=== PATIENT | male | born 1950 | race African-American/Black ===

== ENCOUNTER → 2016-07-19 | Outpatient (CLI) | payer OTHER ==
[2015-06-13 11:43] VITALS: BP 123/83
--- NOTE | 2016-07-19 11:03 | RAD ---
HISTORY: Right hip pain Study: Right hip two views, AP pelvis Comparison: None Findings: The pelvic bones and SI joints are intact. The right hip joint is intact. Mild degenerative joint sp mary beth narrowing is present. No joint erosions are noted. No fracture, lytic, or blastic lesion is iden tified. IMPRESSION: Mild degenerative joint space narrowing right hip Reported By:
== END ==
LOC: RAD 10:38
PROVIDERS: ATTEND Specialist
DX: M25.551 Pain in right hip (principal)
CPT/HCPCS: 73501

== ENCOUNTER 2020-03-01 04:40 | Inpatient (IN) ==
[2020-03-01 04:58] VITALS: BMI 27.8
--- NOTE | 2020-03-01 05:01 | DR.SOBA ---
HPI Time Seen Time Seen by Provider: 03/01/20 04:55 HPI Comment HPI Comment: Worsening sob this am after having cough, congestion for the past week; treated empirically with Medrol dose xochitl and zjanellek and covid came back positive on Friday; taking meds as prescribed but tonight noted sats fell to low 80s; denies fever, chills, abd pain, n/v/d, smith, dizziness, cp and rash; he does not smoke but does have sarcoidosis, dm and htn. PMH PMH Past Medical History: Coronary Artery Disease and Hyperthyroidism Past Surgical History: Yes Social History Do you use any recreational Drugs:: No ROS Review of Systems Constitutional: No Symptoms Reported Eyes: No Symptoms Reported ENTM: No Symptoms Reported Cardiovascular: No Symptoms Reported Gastrointestinal/Abdominal: No Symptoms Reported Genitourinary: Other (weak bladder) Neurological: No Symptoms Reported Musculoskeletal: No Symptoms Reported Integumentary: No Symptoms Reported Hematologic/Lymphatic: No Symptoms Reported Endocrine: No Symptoms Reported Psychiatric: No Symptoms Reported PE Vital Signs Vitals: Temperature 97.5 F Pulse Rate 77 Respiratory Rate 24 Blood Pressure 143/79 O2 Sat by Pulse Oximetry 87 General Limitations: No Limitations General Appearance: Alert and In No Apparent Distress Head Head Exam: Normal Inspection Eyes Eye exam: Normal Appearance ENT ENT Exam: Normal Exam Neck Neck Exam: Normal Inspection Chest Chest Inspection: Normal Inspection Respiratory Respiratory Exam: Bilateral: Decreased Breath Sounds, Left: Crackles (scattered) and Lower: Crackles (scattered) Cardiovascular Cardiovascular Exam: Regular Rate and Normal Rhythm Abdominal Exam Abdominal Exam: Normal Inspection, Normal Bowel Sounds and Soft Extremities Extremities Exam: Normal Inspection Back Back Exam: Normal Inspection Neurologic Neurological Exam: Alert and Oriented X3 Psychiatric Psychiatric Exam: Normal Affect and Normal Mood Skin Skin Exam: Warm, Dry, Intact and Normal Color COURSE Reevaluation 1st: Unchanged (resting comfortably; diaphoretic; asks for water) Consultation Call Returned: 06:40 (Dr David accepts admission) ROR Labs Reviewed Laboratory Results Reviewed?: Yes Result Diagrams: 03/01/20 05:07 03/01/20 05:07 Laboratory: WBC 11.7 X10^3/uL (3.6-10.0) H 03/01/20 05:07 RBC 4.54 X10^6/uL (4.7-6.0) L 03/01/20 05:07 Hgb 13.7 g/dL (13.5-18.0) 03/01/20 05:07 Hct 41.7 % (42.0-54.0) L 03/01/20 05:07 MCV 91.7 fL (80.0-100.0) 03/01/20 05:07 MCH 30.1 pg (27.0-34.0) 03/01/20 05:07 MCHC 32.8 g/dL (33.0-35.0) L 03/01/20 05:07 RDW 13.2 % (11.6-16.5) 03/01/20 05:07 Plt Count 202 X10^3/uL (150.0-450.0) 03/01/20 05:07 MPV 7.3 fL (7.4-11.0) L 03/01/20 05:07 Neut % (Auto) 83.7 % (42.0-75.0) H 03/01/20 05:07 Lymph % (Auto) 5.4 % (21.0-51.0) L 03/01/20 05:07 [place] % (Auto) 9.6 % (0.0-13.0) 03/01/20 05:07 Eos % (Auto) 1.1 % (0.9-2.9) 03/01/20 05:07 Baso % (Auto) 0.2 % (0.2-1.0) 03/01/20 05:07 Neut # (Auto) 9.8 x10^3/uL (2.2-4.8) H 03/01/20 05:07 Lymph # (Auto) 0.6 X10^3/uL (1.3-2.9) L 03/01/20 05:07 [place] # (Auto) 1.1 x10^3/uL (0.3-0.8) H 03/01/20 05:07 Eos # (Auto) 0.1 x10^3/uL (0.0-0.2) 03/01/20 05:07 Baso # (Auto) 0.0 X10^3/uL (0.0-0.1) 03/01/20 05:07 Absolute Nucleated RBC 0.0 /100WBC 03/01/20 05:07 Sample Site Rbra 03/01/20 05:36 ABG pH 7.470 (7.35-7.45) H 03/01/20 05:36 ABG pCO2 28.0 mmHg (35.0-45.0) L 03/01/20 05:36 ABG pO2 60.0 mmHg (80.0-100.0) L 03/01/20 05:36 ABG HCO3 20.4 mmol/L (22-26) L 03/01/20 05:36 ABG O2 Saturation 92.0 % (90-100) 03/01/20 05:36 ABG Base Excess -2.2 mmol/L (-2.0-2.0) L 03/01/20 05:36 Vasu Test Na 03/01/20 05:36 A-a Gradient 162.0 mmHg 03/01/20 05:36 FiO2 36.0 03/01/20 05:36 Blood Gas Comments Pt tiki well eb 03/01/20 05:36 Sodium 137 mmol/L (136-145) 03/01/20 05:07 Corrected Sodium 138 mmol/L (136-145) 03/01/20 05:07 Potassium 4.0 mmol/L (3.5-5.1) 03/01/20 05:07 Chloride 104 mmol/L (98-107) 03/01/20 05:07 Carbon Dioxide 23.5 mmol/L (21-32) 03/01/20 05:07 BUN 32 mg/dL (7-18) H 03/01/20 05:07 Creatinine 1.42 mg/dL (0.70-1.30) H 03/01/20 05:07 Est GFR (MDRD) Af Amer > 60 (>60) 03/01/20 05:07 Est GFR (MDRD) Non-Af 52 (>60) L 03/01/20 05:07 Glucose 148 mg/dL (65-99) H 03/01/20 05:07 Lactic Acid 2.0 mmol/L (0.4-2.0) 03/01/20 05:07 Calcium 8.9 mg/dL (8.5-10.1) 03/01/20 05:07 Corrected Calcium 9.7 mg/dL (8.5-10.1) 03/01/20 05:07 Total Bilirubin 1.10 mg/dL (0.2-1.0) H 03/01/20 05:07 AST 49 Units/L (15-37) H 03/01/20 05:07 ALT 56 Units/L (12-78) 03/01/20 05:07 Alkaline Phosphatase 71 Units/L (46-116) 03/01/20 05:07 Lactate Dehydrogenase 348 Units/L (85-227) H 03/01/20 05:07 C-Reactive Protein 95.90 mg/L (0-3.0) H 03/01/20 05:07 Total Protein 8.1 g/dL (6.4-8.2) 03/01/20 05:07 Albumin 3.0 g/dL (3.4-5.0) L 03/01/20 05:07 Globulin 5.1 g/dL (2.5-4.5) H 03/01/20 05:07 Albumin/Globulin Ratio 0.6 Ratio (1.1-2.1) L 03/01/20 05:07 XRAY XRAY Interpreted by: Radiologist X-ray Results: CXR: IMPRESSION: 1. Bilateral moderate pneumonia. 2. Heart size upper limits of normal. Opioid Opioid Risk Tool Age (Roger box if 16-45): No History of Preadolescent Sexual Abuse: No Total: 0 Total Score Risk Category: Low Risk Copyright: Parveen NUR predicting aberrant behaviors Diagnosis Discharge Problem: Hypoxia, COVID-19, Acute renal insufficiency Bilateral pneumonia Qualifiers: Pneumonia type: due to unspecified organism Lung location: upper lobe of lung Qualified Code(s): J18.9 - Pneumonia, unspecified organism Instructions Instructions: Community-Acquired Pneumonia, Adult, [id number] Forms: Patient Portal Social Distancing
[2020-03-01 05:14] LABS: BASOPHILS % (AUTO) 0.2 % (0.2-1.0); EOSINOPHILS # (AUTO) 0.1 x10^3/uL (0.0-0.2); EOSINOPHILS % (AUTO) 1.1 % (0.9-2.9); HEMATOCRIT 41.7 % (42.0-54.0); HEMOGLOBIN 13.7 g/dL (13.5-18.0); LYMPHOCYTES # (AUTO) 0.6 X10^3/uL (1.3-2.9); LYMPHOCYTES % (AUTO) 5.4 % (21.0-51.0); MEAN CORPUSCULAR HEMOGLOBIN 30.1 pg (27.0-34.0); MEAN CORPUSCULAR HGB CONC 32.8 g/dL (33.0-35.0); MEAN CORPUSCULAR VOLUME 91.7 fL (80.0-100.0); MEAN PLATELET VOLUME 7.3 fL (7.4-11.0); MONOCYTES # (AUTO) 1.1 x10^3/uL (0.3-0.8); MONOCYTES % (AUTO) 9.6 % (0.0-13.0); NEUTROPHILS # (AUTO) 9.8 x10^3/uL (2.2-4.8); NEUTROPHILS % (AUTO) 83.7 % (42.0-75.0); PLATELET COUNT 202 X10^3/uL (150.0-450.0); RED BLOOD COUNT 4.54 X10^6/uL (4.7-6.0); RED CELL DISTRIBUTION WIDTH 13.2 % (11.6-16.5); WHITE BLOOD COUNT 11.7 X10^3/uL (3.6-10.0)
--- NOTE | 2020-03-01 05:14 | RAD ---
PROCEDURE: Chest X-ray 1 View .HISTORY: Short of breath.TECHNIQUE: AP view .COMPARISON: None .TECHNICAL QUALITY: Satisfactory .FINDINGS:Heart size upper limits of normal with pacemaker on the left. No mediastinal widening.Normal central vascularity .Patchy consolidation both mid lower lung consistent with pneumonia. No pleural fluid or pneumothorax.IMPRESSION:1. Bilateral moderate pneumonia.2. Heart size upper limits of normal.Electronically signed by: Frandy Yates (Mar 01, 2020 05:13:05)
[2020-03-01 05:27] LABS: ALANINE AMINOTRANSFERASE 56 Units/L (12-78); ALKALINE PHOSPHATASE 71 Units/L (46-116); ASPARTATE AMINO TRANSFERASE 49 Units/L (15-37); BLOOD UREA NITROGEN 32 mg/dL (7-18); CALCIUM 8.9 mg/dL (8.5-10.1); CARBON DIOXIDE 23.5 mmol/L (21-32); CHLORIDE 104 mmol/L (98-107); COR CA(FOR HYPOALB) 9.7 mg/dL (8.5-10.1); COR NA(FOR HYPERGLY) 138 mmol/L (136-145); CREATININE 1.42 mg/dL (0.70-1.30); LACTATE DEHYDROGENASE 348 Units/L (85-227); SODIUM 137 mmol/L (136-145); TOTAL PROTEIN 8.1 g/dL (6.4-8.2); eGFR NON BLACK RACES 52 (>60)
[2020-03-01 05:38] LABS: ABG BASE EXCESS -2.2 mmol/L (-2.0-2.0); ABG HCO3 20.4 mmol/L (22-26)
[2020-03-01] MEDS ORDERED: ZOSYN VIAL 2.25 GRAMS 2.25 G in NS 100 ML IV + SPIKE MINIBAG* 100 ML IV STA (06:39)
[2020-03-01] MEDS ORDERED: REMDESIVIR 200 MG in NS 250 ML IV 250 ML IV ONE (06:44)
[2020-03-01] MEDS ORDERED: DECADRON TAB PO SCH (09:00)
[2020-03-01] MEDS: PULMICORT NEB TX 0.5 MG NEB SCH ×2 (10:02→21:10)
[2020-03-01] MEDS: DUONEB 0.5 MG/3 MG (3 mL) NEB SCH ×4 (10:02→21:10)
--- NOTE | 2020-03-01 10:24 | DR.H&P ---
H&P History & Physical for Day of: H&P Date: 03/01/20 Chief Complaint Chief Complaint: worsening SOB, weakness Allergies Allergies Allergy/AdvReac Type Severity Reaction Status Date / Time No Known Drug Allergies Allergy Verified 01/22/19 23:53 History of Present Illness History of Present Illness: Mr. Cheney is a 69y/o male with a PMH of Sarcoidosis, DM, HTN and AICD presented with worsening dyspnea. He states he tested positive for COVID 02/22/20. He sees Dr. Petit and was given z-pack and medrol dose pack. He states he was doing fine until yesterday he started having increased shortness of breath. Patient does not use O2 at home. He was on initially placed on nasal canula but sats remained in the 80s so he was placed on venti mask at 50%. He does not seem to be in distress, no labored breathing noted. Labs: - WBC 11.7 BUN/Cr: 32/1.42 AB.47/28/60/20 on 3L NC CXR: bilateral moderate pneumonia. Patient was started on IV antibotics, decadron and remdesivir. Will continue Zosyn, switch to solumedrol and continue Remdesivir. Wean O2 as tolerated to keep sats > 92%. Monitor respiratory status closely. Aggressive pulmonary toilet with bronchodilators. Add SSI for hyperglycemia. Lovenox 30 mg BID for DVT ppx. Continue vitamin support. Reconcile home medications. Time spent for clinical assessment, physical exam, reviewing labs/imaging, decision making and documentation greater than 45 mins. Past Medical History Past Medical History: Coronary Artery Disease and Hyperthyroidism Additional Medical History: AICD Past Surgical History Additional Surgical History: AICD placement Family History Family Medical History: Diabetes Mellitus, Cancer, [place], Coronary Artery Disease and Hypertension Social History Does patient currently use any type of tobacco product: No Have you used tobacco products in the last 12 months: No Type of Tobacco Use: None Does any household member use tobacco: No Alcohol Use: None Prescription drug monitoring program results: PDMP reviewed and no concerns iden tified Medications Home Medications: No Known Drug Allergies Allergy (Verified 01/22/19 23:53) Labs Result Diagrams: 03/01/20 05:07 03/01/20 05:07 Labs: Laboratory WBC 11.7 X10^3/uL (3.6-10.0) H 03/01/20 05:07 RBC 4.54 X10^6/uL (4.7-6.0) L 03/01/20 05:07 Hgb 13.7 g/dL (13.5-18.0) 03/01/20 05:07 Hct 41.7 % (42.0-54.0) L 03/01/20 05:07 MCV 91.7 fL (80.0-100.0) 03/01/20 05:07 MCH 30.1 pg (27.0-34.0) 03/01/20 05:07 MCHC 32.8 g/dL (33.0-35.0) L 03/01/20 05:07 RDW 13.2 % (11.6-16.5) 03/01/20 05:07 Plt Count 202 X10^3/uL (150.0-450.0) 03/01/20 05:07 MPV 7.3 fL (7.4-11.0) L 03/01/20 05:07 Neut % (Auto) 83.7 % (42.0-75.0) H 03/01/20 05:07 Lymph % (Auto) 5.4 % (21.0-51.0) L 03/01/20 05:07 [place] % (Auto) 9.6 % (0.0-13.0) 03/01/20 05:07 Eos % (Auto) 1.1 % (0.9-2.9) 03/01/20 05:07 Baso % (Auto) 0.2 % (0.2-1.0) 03/01/20 05:07 Neut # (Auto) 9.8 x10^3/uL (2.2-4.8) H 03/01/20 05:07 Lymph # (Auto) 0.6 X10^3/uL (1.3-2.9) L 03/01/20 05:07 [place] # (Auto) 1.1 x10^3/uL (0.3-0.8) H 03/01/20 05:07 Eos # (Auto) 0.1 x10^3/uL (0.0-0.2) 03/01/20 05:07 Baso # (Auto) 0.0 X10^3/uL (0.0-0.1) 03/01/20 05:07 Absolute Nucleated RBC 0.0 /100WBC 03/01/20 05:07 Sample Site Rb 03/01/20 05:36 ABG pH 7.470 (7.35-7.45) H 03/01/20 05:36 ABG pCO2 28.0 mmHg (35.0-45.0) L 03/01/20 05:36 ABG pO2 60.0 mmHg (80.0-100.0) L 03/01/20 05:36 ABG HCO3 20.4 mmol/L (22-26) L 03/01/20 05:36 ABG O2 Saturation 92.0 % (90-100) 03/01/20 05:36 ABG Base Excess -2.2 mmol/L (-2.0-2.0) L 03/01/20 05:36 Vasu Test Na 03/01/20 05:36 A-a Gradient 162.0 mmHg 03/01/20 05:36 FiO2 36.0 03/01/20 05:36 Blood Gas Comments Pt tiki well eb 03/01/20 05:36 Sodium 137 mmol/L (136-145) 03/01/20 05:07 Corrected Sodium 138 mmol/L (136-145) 03/01/20 05:07 Potassium 4.0 mmol/L (3.5-5.1) 03/01/20 05:07 Chloride 104 mmol/L (98-107) 03/01/20 05:07 Carbon Dioxide 23.5 mmol/L (21-32) 03/01/20 05:07 BUN 32 mg/dL (7-18) H 03/01/20 05:07 Creatinine 1.42 mg/dL (0.70-1.30) H 03/01/20 05:07 Est GFR (MDRD) Af Amer > 60 (>60) 03/01/20 05:07 Est GFR (MDRD) Non-Af 52 (>60) L 03/01/20 05:07 Glucose 148 mg/dL (65-99) H 03/01/20 05:07 Lactic Acid 2.0 mmol/L (0.4-2.0) 03/01/20 05:07 Calcium 8.9 mg/dL (8.5-10.1) 03/01/20 05:07 Corrected Calcium 9.7 mg/dL (8.5-10.1) 03/01/20 05:07 Total Bilirubin 1.10 mg/dL (0.2-1.0) H 03/01/20 05:07 AST 49 Units/L (15-37) H 03/01/20 05:07 ALT 56 Units/L (12-78) 03/01/20 05:07 Alkaline Phosphatase 71 Units/L (46-116) 03/01/20 05:07 Lactate Dehydrogenase 348 Units/L (85-227) H 03/01/20 05:07 C-Reactive Protein 95.90 mg/L (0-3.0) H 03/01/20 05:07 Total Protein 8.1 g/dL (6.4-8.2) 03/01/20 05:07 Albumin 3.0 g/dL (3.4-5.0) L 03/01/20 05:07 Globulin 5.1 g/dL (2.5-4.5) H 03/01/20 05:07 Albumin/Globulin Ratio 0.6 Ratio (1.1-2.1) L 03/01/20 05:07 Review of Systems Constitutional: Weakness and Malaise Eyes: No Symptoms Reported ENT: No Symptoms Reported Respiratory: Cough, Shortness of Breath and SOB with Excertion Cardiovascular: No Symptoms Reported Gastrointestinal: No Symptoms Reported Genitourinary: No Symptoms Reported Musculoskeletal: No Symptoms Reported Skin: No Symptoms Reported Neurological: No Symptoms Reported Physical Exam Vital Signs: Temperature 97.5 F Pulse Rate 77 Respiratory Rate 24 Blood Pressure 143/79 O2 Sat by Pulse Oximetry 87 Oriented: Normal Eyes: Normal Ear: Normal Nose: Normal Throat: Normal Respiratory: Diminished Throughout Cardiovascular: Normal Auscultation: Bowel Sounds: Normal Palpation: Normal Tenderness: Normal Skin: Decreased Turgur Musculoskeletal: Normal Mood Description: Calm Affect: Normal Speech Pattern: Clear and Appropriate Assessment/Plan (1) COVID-19: Status: Acute (2) Pneumonia due to COVID-19 virus: Status: Acute (3) Acute respiratory failure with hypoxia: Status: Acute (4) Acute renal insufficiency: Status: Acute (5) AICD (automatic cardioverter/defibrillator) present: Status: Acute (6) Diabetes: Qualifiers: Diabetes mellitus complication status: without complication Diabetes mellitus termite renewal inspector insulin use: unspecified care home insulin use status Diabetes mellitus type: type 2 Qualified Code(s): E11.9 - Type 2 diabetes mellitus without complications Status: Acute (7) Sarcoidosis: Status: Acute Review H&P Reviewed: Yes Patient was examined?: Yes
[2020-03-01] MEDS ORDERED: SOLU-Medrol 40 MG VIAL ONE (10:44)
[2020-03-01] MEDS ORDERED: VITAMIN C ONE (10:44)
[2020-03-01] MEDS ORDERED: PEPCID TAB 40 MG ONE (10:44)
[2020-03-01] MEDS ORDERED: REMDESIVIR IV ONE (10:45)
[2020-03-01] MEDS ORDERED: NS 1000 ML 1,000 ML ONE (10:45)
[2020-03-01] MEDS ORDERED: NS 250 ML IV 250 ML IV ONE (10:45)
[2020-03-01] MEDS ORDERED: LOVENOX INJ 30 MG SYR SC ONE (10:45)
[2020-03-01] MEDS: NS 1000 ML 1,000 ML IV SCH (11:11)
[2020-03-01] MEDS: PEPCID TAB 40 MG PO SCH ×2 (11:12→21:20)
[2020-03-01] MEDS: LOVENOX INJ 30 MG SYR SC SCH ×2 (11:12→21:19)
[2020-03-01] MEDS: SOLU-Medrol 40 MG VIAL IVP SCH ×3 (11:12→22:05)
[2020-03-01] MEDS: ZINC SULFATE PO SCH ×2 (11:13→21:20)
[2020-03-01] MEDS: VITAMIN C PO SCH (11:13)
[2020-03-01] MEDS: ZOSYN VIAL 2.25 GRAMS 2.25 G in NS 100 ML IV + SPIKE MINIBAG* 100 ML IV SCH ×2 (11:18→23:41)
[2020-03-01] MEDS ORDERED: ZESTRIL TAB 10 MG ONE (11:19)
[2020-03-01] MEDS: ZESTRIL TAB 10 MG PO SCH (11:29)
[2020-03-01] MEDS ORDERED: HumuLIN R ONE (16:39)
[2020-03-01] MEDS: HumuLIN R SC PRN ×2 (17:28→22:04)
[2020-03-01] MEDS ORDERED: ZOSYN VIAL 3.375 GRAMS IV ONE (20:27)
[2020-03-01] MEDS ORDERED: NS 100 ML IV + SPIKE MINIBAG* 100 ML IV ONE (20:28)
[2020-03-01] MEDS: ZOSYN VIAL 2.25 GRAMS 3.375 G in NS 100 ML IV + SPIKE MINIBAG* 100 ML IV SCH (22:03)
[2020-03-02 04:24] LABS: ABG BASE EXCESS -3.7 mmol/L (-2.0-2.0); ABG HCO3 20.6 mmol/L (22-26)
[2020-03-02] MEDS ORDERED: NS 100 ML IV + SPIKE MINIBAG* 100 ML IV ONE (04:49)
[2020-03-02] MEDS ORDERED: ZOSYN VIAL 3.375 GRAMS IV ONE (04:50)
[2020-03-02] MEDS: ZOSYN VIAL 2.25 GRAMS 3.375 G in NS 100 ML IV + SPIKE MINIBAG* 100 ML IV SCH (05:04)
--- NOTE | 2020-03-02 05:32 | RAD ---
PROCEDURE: Chest X-ray 1 View .HISTORY: COVID, HYPOXIA .TECHNIQUE: AP view .COMPARISON: 03/01/2020.TECHNICAL QUALITY: Satisfactory .FINDINGS:Heart size upper limits of normal with pacemaker on the left.No mediastinal widening.Normal central vascularity.Patchy consolidation both lung unchanged from previous study with no pleural fluid or pneumothorax.IMPRESSION:Unchanged bilateral pneumonia.Electronically signed by: Frandy Yates (Mar 02, 2020 05:30:20)
[2020-03-02] MEDS: SOLU-Medrol 40 MG VIAL IVP SCH ×3 (05:42→22:26)
[2020-03-02] MEDS: HumuLIN R SC PRN ×4 (06:01→22:27)
[2020-03-02 08:13] LABS: BASOPHILS % (AUTO) 0.1 % (0.2-1.0); HEMATOCRIT 40.9 % (42.0-54.0); HEMOGLOBIN 13.6 g/dL (13.5-18.0); LYMPHOCYTES # (AUTO) 0.6 X10^3/uL (1.3-2.9); LYMPHOCYTES % (AUTO) 6.1 % (21.0-51.0); MEAN CORPUSCULAR HEMOGLOBIN 30.8 pg (27.0-34.0); MEAN CORPUSCULAR HGB CONC 33.2 g/dL (33.0-35.0); MEAN CORPUSCULAR VOLUME 92.9 fL (80.0-100.0); MEAN PLATELET VOLUME 7.9 fL (7.4-11.0); MONOCYTES # (AUTO) 0.4 x10^3/uL (0.3-0.8); MONOCYTES % (AUTO) 3.6 % (0.0-13.0); NEUTROPHILS # (AUTO) 9.1 x10^3/uL (2.2-4.8); NEUTROPHILS % (AUTO) 90.2 % (42.0-75.0); PLATELET COUNT 210 X10^3/uL (150.0-450.0); RED BLOOD COUNT 4.41 X10^6/uL (4.7-6.0); RED CELL DISTRIBUTION WIDTH 13.9 % (11.6-16.5); WHITE BLOOD COUNT 10.1 X10^3/uL (3.6-10.0)
[2020-03-02 08:28] LABS: ALANINE AMINOTRANSFERASE 89 Units/L (12-78); ALBUMIN 2.8 g/dL (3.4-5.0); ALKALINE PHOSPHATASE 72 Units/L (46-116); ASPARTATE AMINO TRANSFERASE 59 Units/L (15-37); BLOOD UREA NITROGEN 30 mg/dL (7-18); CALCIUM 9.2 mg/dL (8.5-10.1); CARBON DIOXIDE 17.5 mmol/L (21-32); CHLORIDE 107 mmol/L (98-107); COR CA(FOR HYPOALB) 10.2 mg/dL (8.5-10.1); COR NA(FOR HYPERGLY) 143 mmol/L (136-145); CREATININE 1.27 mg/dL (0.70-1.30); SODIUM 140 mmol/L (136-145); eGFR NON BLACK RACES 59 (>60)
[2020-03-02] MEDS ORDERED: ALPHAGAN 0.2% OPHTH SOLN OP SCH (09:00)
[2020-03-02 09:12] LABS: BAND NEUTROPHILS % 4 % (0-10); PLATELET MORPHOLOGY COMMENT NORMAL (NORMAL)
[2020-03-02] MEDS: PULMICORT NEB TX 0.5 MG NEB SCH ×2 (09:34→21:55)
[2020-03-02] MEDS: DUONEB 0.5 MG/3 MG (3 mL) NEB SCH ×4 (09:34→21:55)
[2020-03-02] MEDS: ZESTRIL TAB 10 MG PO SCH (10:00)
[2020-03-02] MEDS: ZINC SULFATE PO SCH ×2 (10:00→22:25)
[2020-03-02] MEDS: LUMIGAN OPHTH AFFEYE SCH ×4 (10:00→22:25)
[2020-03-02] MEDS: BETAPACE AF PO SCH ×2 (10:00→22:24)
[2020-03-02] MEDS: PriLOSEC PO SCH (10:00)
[2020-03-02] MEDS: LUMIGAN OPHTH EACHEYE SCH (10:00)
[2020-03-02] MEDS: LIPITOR TAB 10 MG PO SCH ×2 (10:00→22:24)
[2020-03-02] MEDS: ELIQUIS PO SCH ×2 (10:00→22:24)
[2020-03-02] MEDS: VITAMIN C PO SCH (10:00)
[2020-03-02] MEDS: REMDESIVIR 100 MG in NS 250 ML IV 250 ML IV SCH (10:00)
[2020-03-02] MEDS: NS 1000 ML 1,000 ML IV SCH (14:42)
[2020-03-02] MEDS: TRUSOPT PLUS (OPHTH) OP SCH ×2 (15:00→22:26)
[2020-03-02] MEDS: NEURONTIN CAP 300 MG PO SCH ×3 (15:00→22:25)
[2020-03-02] MEDS: ZOSYN VIAL 3.375 GRAMS 3.375 G in NS 100 ML IV + SPIKE MINIBAG* 100 ML IV SCH ×2 (16:30→22:26)
[2020-03-03] MEDS: LR 1000 ML IV 1,000 ML IV SCH (04:00)
[2020-03-03] MEDS: SOLU-Medrol 40 MG VIAL IVP SCH ×3 (05:28→21:20)
[2020-03-03] MEDS: ZOSYN VIAL 3.375 GRAMS 3.375 G in NS 100 ML IV + SPIKE MINIBAG* 100 ML IV SCH ×3 (05:28→21:20)
[2020-03-03] MEDS: NEURONTIN CAP 300 MG PO SCH ×4 (05:28→21:20)
[2020-03-03] MEDS: TRUSOPT PLUS (OPHTH) OP SCH ×3 (05:28→21:21)
[2020-03-03] MEDS: HumuLIN R SC PRN ×4 (05:53→22:34)
[2020-03-03] MEDS: NS 1000 ML 1,000 ML IV SCH (06:08)
[2020-03-03 06:55] LABS: BASOPHILS % (AUTO) 0.1 % (0.2-1.0); HEMATOCRIT 40.5 % (42.0-54.0); HEMOGLOBIN 13.4 g/dL (13.5-18.0); LYMPHOCYTES # (AUTO) 0.6 X10^3/uL (1.3-2.9); LYMPHOCYTES % (AUTO) 2.6 % (21.0-51.0); MEAN CORPUSCULAR HEMOGLOBIN 30.6 pg (27.0-34.0); MEAN CORPUSCULAR VOLUME 92.6 fL (80.0-100.0); MEAN PLATELET VOLUME 7.8 fL (7.4-11.0); MONOCYTES # (AUTO) 0.7 x10^3/uL (0.3-0.8); MONOCYTES % (AUTO) 3.4 % (0.0-13.0); NEUTROPHILS # (AUTO) 20.5 x10^3/uL (2.2-4.8); NEUTROPHILS % (AUTO) 93.9 % (42.0-75.0); PLATELET COUNT 252 X10^3/uL (150.0-450.0); RED BLOOD COUNT 4.38 X10^6/uL (4.7-6.0); RED CELL DISTRIBUTION WIDTH 13.6 % (11.6-16.5); WHITE BLOOD COUNT 21.8 X10^3/uL (3.6-10.0)
[2020-03-03 06:58] LABS: ALANINE AMINOTRANSFERASE 76 Units/L (12-78); ALBUMIN 2.7 g/dL (3.4-5.0); ALKALINE PHOSPHATASE 71 Units/L (46-116); ASPARTATE AMINO TRANSFERASE 41 Units/L (15-37); BLOOD UREA NITROGEN 27 mg/dL (7-18); CALCIUM 9.2 mg/dL (8.5-10.1); CARBON DIOXIDE 22.6 mmol/L (21-32); CHLORIDE 109 mmol/L (98-107); COR CA(FOR HYPOALB) 10.2 mg/dL (8.5-10.1); COR NA(FOR HYPERGLY) 146 mmol/L (136-145); CREATININE 1.32 mg/dL (0.70-1.30); SODIUM 142 mmol/L (136-145); TOTAL PROTEIN 7.7 g/dL (6.4-8.2); eGFR NON BLACK RACES 57 (>60)
[2020-03-03 07:38] LABS: BAND NEUTROPHILS % 2 % (0-10); PLATELET MORPHOLOGY COMMENT NORMAL (NORMAL)
[2020-03-03] MEDS: DUONEB 0.5 MG/3 MG (3 mL) NEB SCH ×4 (09:40→21:50)
[2020-03-03] MEDS: PULMICORT NEB TX 0.5 MG NEB SCH ×2 (09:40→21:50)
--- NOTE | 2020-03-03 09:47 | PCM.PROG ---
Progress Note Progress Note for Day of Date of Exam: 03/02/20 Subjective Subjective: Patient seen at bedside, no overnight events. He is being treated for COVID-19 pneumonia and acute resp failure. He remains on NRB at 100%. He states he feels a lot better, his breathing has improved. He has been coughing, denies fever or chills. Patient appears comfortable, no labored breathing noted. Denies GI Sx. Labs: AM labs pending Plan: follow labs, CXR and ABG. Wean O2 as tolerated to keep sats> 92%. Continue solumedrol, IV abx and Remdesivir. Continue bronchodilators and immune support with vitamins. Resume home medications. Stop lovenox and resume home dose Eliquis. PT/OT as tolerated. Monitor resp status closely. Time spent for clinical assessment, physical examination, reviewing labs/imaging, decision making and documentation greater than 45 mins. Past Medical Family Social History Past Med/Fam/Surg Hx: No changes since H&P Allergies: Allergies No Known Drug Allergies Allergy (Verified 01/22/19 23:53) Review of Systems ROS: No change since H&P Vital Signs and I&O's Vital Signs: Temperature 97.8 F Pulse Rate [Apical] 74 Pulse Rate 68 Respiratory Rate 20 Blood Pressure [Right Arm] 125/73 Blood Pressure 143/79 O2 Sat by Pulse Oximetry 98 Intake and Output: Intake & Output 02/29/20 03/01/20 03/02/20 03/03/20 23:59 23:59 23:59 23:59 Intake Total 1311 / 1311 2003 / 2003 252 / 252 Output Total 1200 / 1200 1650 / 1650 450 / 450 Balance 111 / 111 354 / 354 -198 / -198 Physical Exam Oriented: Normal Eyes: Normal Ear: Normal Nose: Normal Throat: Normal Respiratory: Generalized and Diminished Cardiovascular: Normal Auscultation: Bowel Sounds: Normal Tenderness: Normal Skin: Decreased Turgur Musculoskeletal: Normal Mood Description: Calm Affect: Normal Speech Pattern: Clear and Appropriate Laboratory and Diagnostics Result Diagrams: 03/03/20 05:21 03/03/20 05:21 Labs: Laboratory WBC 21.8 X10^3/uL (3.6-10.0) H D 03/03/20 05:21 RBC 4.38 X10^6/uL (4.7-6.0) L 03/03/20 05:21 Hgb 13.4 g/dL (13.5-18.0) L 03/03/20 05:21 Hct 40.5 % (42.0-54.0) L 03/03/20 05:21 MCV 92.6 fL (80.0-100.0) 03/03/20 05:21 MCH 30.6 pg (27.0-34.0) 03/03/20 05:21 MCHC 33.0 g/dL (33.0-35.0) 03/03/20 05:21 RDW 13.6 % (11.6-16.5) 03/03/20 05:21 Plt Count 252 X10^3/uL (150.0-450.0) 03/03/20 05:21 Plt Count Comment Adequate (ADEQUATE) 03/03/20 05:21 MPV 7.8 fL (7.4-11.0) 03/03/20 05:21 Neut % (Auto) 93.9 % (42.0-75.0) H 03/03/20 05:21 Lymph % (Auto) 2.6 % (21.0-51.0) L 03/03/20 05:21 [place] % (Auto) 3.4 % (0.0-13.0) 03/03/20 05:21 Eos % (Auto) 0.0 % (0.9-2.9) L 03/03/20 05:21 Baso % (Auto) 0.1 % (0.2-1.0) L 03/03/20 05:21 Neut # (Auto) 20.5 x10^3/uL (2.2-4.8) H 03/03/20 05:21 Lymph # (Auto) 0.6 X10^3/uL (1.3-2.9) L 03/03/20 05:21 [place] # (Auto) 0.7 x10^3/uL (0.3-0.8) 03/03/20 05:21 Eos # (Auto) 0.0 x10^3/uL (0.0-0.2) 03/03/20 05:21 Baso # (Auto) 0.0 X10^3/uL (0.0-0.1) 03/03/20 05:21 Absolute Nucleated RBC 0.1 /100WBC 03/03/20 05:21 Total Counted 100 03/03/20 05:21 Neutrophils % (Manual) 90 % (39-76) H 03/03/20 05:21 Band Neutrophils % 2 % (0-10) 03/03/20 05:21 Lymphocytes % (Manual) 4 % (13-43) L 03/03/20 05:21 Monocytes % (Manual) 4 % (4-9) 03/03/20 05:21 Plt Morphology Comment Normal (NORMAL) 03/03/20 05:21 RBC Morphology Normal (NORMAL) 03/03/20 05:21 D-Dimer 1.57 ug/ml (0.0-0.57) H* 03/03/20 05:21 Sample Site Rb 03/02/20 04:19 ABG pH 7.390 (7.35-7.45) 03/02/20 04:19 ABG pCO2 34.0 mmHg (35.0-45.0) L 03/02/20 04:19 ABG pO2 92.0 mmHg (80.0-100.0) 03/02/20 04:19 ABG HCO3 20.6 mmol/L (22-26) L 03/02/20 04:19 ABG O2 Saturation 97.0 % (90-100) 03/02/20 04:19 ABG Base Excess -3.7 mmol/L (-2.0-2.0) L 03/02/20 04:19 Vasu Test N/a 03/02/20 04:19 A-a Gradient 579.0 mmHg 03/02/20 04:19 FiO2 100.0 03/02/20 04:19 Blood Gas Comments Tejinder well ae 03/02/20 04:19 Sodium 142 mmol/L (136-145) 03/03/20 05:21 Corrected Sodium 146 mmol/L (136-145) H 03/03/20 05:21 Potassium 5.1 mmol/L (3.5-5.1) 03/03/20 05:21 Chloride 109 mmol/L (98-107) H 03/03/20 05:21 Carbon Dioxide 22.6 mmol/L (21-32) 03/03/20 05:21 BUN 27 mg/dL (7-18) H 03/03/20 05:21 Creatinine 1.32 mg/dL (0.70-1.30) H 03/03/20 05:21 Est GFR (MDRD) Af Amer > 60 (>60) 03/03/20 05:21 Est GFR (MDRD) Non-Af 57 (>60) L 03/03/20 05:21 Glucose 268 mg/dL (65-99) H 03/03/20 05:21 POC Glucose (mg/dL) 258 mg/dL (65-99) H 03/03/20 05:15 Lactic Acid 2.0 mmol/L (0.4-2.0) 03/01/20 05:07 Calcium 9.2 mg/dL (8.5-10.1) 03/03/20 05:21 Corrected Calcium 10.2 mg/dL (8.5-10.1) H 03/03/20 05:21 Total Bilirubin 0.40 mg/dL (0.2-1.0) 03/03/20 05:21 AST 41 Units/L (15-37) H 03/03/20 05:21 ALT 76 Units/L (12-78) 03/03/20 05:21 Alkaline Phosphatase 71 Units/L (46-116) 03/03/20 05:21 Lactate Dehydrogenase 348 Units/L (85-227) H 03/01/20 05:07 C-Reactive Protein 99.00 mg/L (0-3.0) H 03/02/20 05:24 Total Protein 7.7 g/dL (6.4-8.2) 03/03/20 05:21 Albumin 2.7 g/dL (3.4-5.0) L 03/03/20 05:21 Globulin 5.0 g/dL (2.5-4.5) H 03/03/20 05:21 Albumin/Globulin Ratio 0.5 Ratio (1.1-2.1) L 03/03/20 05:21 Plan (1) COVID-19: Status: Acute (2) Pneumonia due to COVID-19 virus: Status: Acute (3) Acute respiratory failure with hypoxia: Status: Acute (4) Acute renal insufficiency: Status: Acute (5) AICD (automatic cardioverter/defibrillator) present: Status: Acute (6) Diabetes: Status: Acute Qualifiers: Diabetes mellitus complication status: without complication Diabetes mellitus superintendent marine oil terminal insulin use: unspecified mcc insulin use status Diabetes mellitus type: type 2 Qualified Code(s): E11.9 - Type 2 diabetes mellitus without complications (7) Sarcoidosis: Status: Acute
--- NOTE | 2020-03-03 09:50 | PCM.PROG ---
Progress Note Progress Note for Day of Date of Exam: 03/03/20 Subjective Subjective: Patient seen at bedside, no overnight events. He is being treated for COVID-19 pneumonia and acute resp failure. He remains on NRB at 100%. His sats have remained above 95%. He states his breathing has improved, denies fever or chills. He states he is having productive cough. He also mentioned having some burning in his chest when he coughs. Denies chest pain or pressure at rest. Labs: WBC 21.8 Hgb 13.4 K: 5.1 BUN/Cr: 27/1.32 Glucose 268 AB.39/34/92/20.6 97% on NRB at 100% CXR yesterday: Patchy consolidation both lung unchanged from previous study with no pleural fluid or pneumothorax. Plan: will check d-dimer, if elevated then CTA to rule out PE. Wean O2 as tiki erated, discussed with CM to let RT know to wean down O2 as patient's sats have been over 95%. He appears comfortable with no labored breathing. Continue current treatment with Remdesivir, solumedrol and IV abx. Continue bronchodilators and vitamins. PT/OT as tolerated. Time spent for clinical assessment, physical examination, reviewing labs/imaging, decision making and documentation greater than 45 mins. Past Medical Family Social History Past Med/Fam/Surg Hx: No changes since H&P Allergies: Allergies No Known Drug Allergies Allergy (Verified 01/22/19 23:53) Review of Systems ROS: No change since H&P Vital Signs and I&O's Vital Signs: Temperature 97.8 F Pulse Rate [Apical] 74 Pulse Rate 68 Respiratory Rate 20 Blood Pressure [Right Arm] 125/73 Blood Pressure 143/79 O2 Sat by Pulse Oximetry 98 Intake and Output: Intake & Output 02/29/20 03/01/20 03/02/20 03/03/20 23:59 23:59 23:59 23:59 Intake Total 1311 / 1311 2003 / 2003 252 / 252 Output Total 1200 / 1200 1650 / 1650 450 / 450 Balance 111 / 111 354 / 354 -198 / -198 Physical Exam Oriented: Normal Eyes: Normal Ear: Normal Nose: Normal Throat: Normal Respiratory: Generalized and Diminished Cardiovascular: Normal Auscultation: Bowel Sounds: Normal Tenderness: Normal Skin: Decreased Turgur Musculoskeletal: Normal Mood Description: Calm Affect: Normal Speech Pattern: Clear and Appropriate Laboratory and Diagnostics Result Diagrams: 03/03/20 05:21 03/03/20 05:21 Labs: Laboratory WBC 21.8 X10^3/uL (3.6-10.0) H D 03/03/20 05:21 RBC 4.38 X10^6/uL (4.7-6.0) L 03/03/20 05:21 Hgb 13.4 g/dL (13.5-18.0) L 03/03/20 05:21 Hct 40.5 % (42.0-54.0) L 03/03/20 05:21 MCV 92.6 fL (80.0-100.0) 03/03/20 05:21 MCH 30.6 pg (27.0-34.0) 03/03/20 05:21 MCHC 33.0 g/dL (33.0-35.0) 03/03/20 05:21 RDW 13.6 % (11.6-16.5) 03/03/20 05:21 Plt Count 252 X10^3/uL (150.0-450.0) 03/03/20 05:21 Plt Count Comment Adequate (ADEQUATE) 03/03/20 05:21 MPV 7.8 fL (7.4-11.0) 03/03/20 05:21 Neut % (Auto) 93.9 % (42.0-75.0) H 03/03/20 05:21 Lymph % (Auto) 2.6 % (21.0-51.0) L 03/03/20 05:21 Cavalier % (Auto) 3.4 % (0.0-13.0) 03/03/20 05:21 Eos % (Auto) 0.0 % (0.9-2.9) L 03/03/20 05:21 Baso % (Auto) 0.1 % (0.2-1.0) L 03/03/20 05:21 Neut # (Auto) 20.5 x10^3/uL (2.2-4.8) H 03/03/20 05:21 Lymph # (Auto) 0.6 X10^3/uL (1.3-2.9) L 03/03/20 05:21 Cavalier # (Auto) 0.7 x10^3/uL (0.3-0.8) 03/03/20 05:21 Eos # (Auto) 0.0 x10^3/uL (0.0-0.2) 03/03/20 05:21 Baso # (Auto) 0.0 X10^3/uL (0.0-0.1) 03/03/20 05:21 Absolute Nucleated RBC 0.1 /100WBC 03/03/20 05:21 Total Counted 100 03/03/20 05:21 Neutrophils % (Manual) 90 % (39-76) H 03/03/20 05:21 Band Neutrophils % 2 % (0-10) 03/03/20 05:21 Lymphocytes % (Manual) 4 % (13-43) L 03/03/20 05:21 Monocytes % (Manual) 4 % (4-9) 03/03/20 05:21 Plt Morphology Comment Normal (NORMAL) 03/03/20 05:21 RBC Morphology Normal (NORMAL) 03/03/20 05:21 D-Dimer 1.57 ug/ml (0.0-0.57) H* 03/03/20 05:21 Sample Site Rb 03/02/20 04:19 ABG pH 7.390 (7.35-7.45) 03/02/20 04:19 ABG pCO2 34.0 mmHg (35.0-45.0) L 03/02/20 04:19 ABG pO2 92.0 mmHg (80.0-100.0) 03/02/20 04:19 ABG HCO3 20.6 mmol/L (22-26) L 03/02/20 04:19 ABG O2 Saturation 97.0 % (90-100) 03/02/20 04:19 ABG Base Excess -3.7 mmol/L (-2.0-2.0) L 03/02/20 04:19 Vasu Test N/a 03/02/20 04:19 A-a Gradient 579.0 mmHg 03/02/20 04:19 FiO2 100.0 03/02/20 04:19 Blood Gas Comments Tiki well ae 03/02/20 04:19 Sodium 142 mmol/L (136-145) 03/03/20 05:21 Corrected Sodium 146 mmol/L (136-145) H 03/03/20 05:21 Potassium 5.1 mmol/L (3.5-5.1) 03/03/20 05:21 Chloride 109 mmol/L (98-107) H 03/03/20 05:21 Carbon Dioxide 22.6 mmol/L (21-32) 03/03/20 05:21 BUN 27 mg/dL (7-18) H 03/03/20 05:21 Creatinine 1.32 mg/dL (0.70-1.30) H 03/03/20 05:21 Est GFR (MDRD) Af Amer > 60 (>60) 03/03/20 05:21 Est GFR (MDRD) Non-Af 57 (>60) L 03/03/20 05:21 Glucose 268 mg/dL (65-99) H 03/03/20 05:21 POC Glucose (mg/dL) 258 mg/dL (65-99) H 03/03/20 05:15 Lactic Acid 2.0 mmol/L (0.4-2.0) 03/01/20 05:07 Calcium 9.2 mg/dL (8.5-10.1) 03/03/20 05:21 Corrected Calcium 10.2 mg/dL (8.5-10.1) H 03/03/20 05:21 Total Bilirubin 0.40 mg/dL (0.2-1.0) 03/03/20 05:21 AST 41 Units/L (15-37) H 03/03/20 05:21 ALT 76 Units/L (12-78) 03/03/20 05:21 Alkaline Phosphatase 71 Units/L (46-116) 03/03/20 05:21 Lactate Dehydrogenase 348 Units/L (85-227) H 03/01/20 05:07 C-Reactive Protein 99.00 mg/L (0-3.0) H 03/02/20 05:24 Total Protein 7.7 g/dL (6.4-8.2) 03/03/20 05:21 Albumin 2.7 g/dL (3.4-5.0) L 03/03/20 05:21 Globulin 5.0 g/dL (2.5-4.5) H 03/03/20 05:21 Albumin/Globulin Ratio 0.5 Ratio (1.1-2.1) L 03/03/20 05:21 Plan (1) COVID-19: Status: Acute (2) Pneumonia due to COVID-19 virus: Status: Acute (3) Acute respiratory failure with hypoxia: Status: Acute (4) Acute renal insufficiency: Status: Acute (5) AICD (automatic cardioverter/defibrillator) present: Status: Acute (6) Diabetes: Status: Acute Qualifiers: Diabetes mellitus complication status: without complication Diabetes mellitus termination clerk insulin use: unspecified penitentiary insulin use status Diabetes mellitus type: type 2 Qualified Code(s): E11.9 - Type 2 diabetes [facility] without complications (7) Sarcoidosis: Status: Acute
[2020-03-03] MEDS: VITAMIN C PO SCH (10:00)
[2020-03-03] MEDS: ZINC SULFATE PO SCH ×2 (10:00→21:20)
[2020-03-03] MEDS: PriLOSEC PO SCH (10:00)
[2020-03-03] MEDS: VITAMIN A PO SCH (10:00)
[2020-03-03] MEDS: BETAPACE AF PO SCH ×2 (10:00→21:19)
[2020-03-03] MEDS: LUMIGAN OPHTH AFFEYE SCH (10:00)
[2020-03-03] MEDS: VITAMIN D3 125 mcg (5,000 UNITS) PO SCH (10:00)
[2020-03-03] MEDS: ZESTRIL TAB 10 MG PO SCH (10:00)
[2020-03-03] MEDS: REMDESIVIR 100 MG in NS 250 ML IV 250 ML IV SCH (10:00)
[2020-03-03] MEDS: ELIQUIS PO SCH ×2 (10:00→21:20)
[2020-03-03] MEDS: LUMIGAN OPHTH EACHEYE SCH (10:00)
[2020-03-03] MEDS: AMARYL TAB 4 MG PO SCH (11:00)
--- NOTE | 2020-03-03 13:07 | CT ---
HISTORYCOVID, ELEVATED D-DIMER history of sarcoidosis. Coronary artery disease. Diabetes and hypertension.STUDYCTA CHESTCOMPARISONNoneTECHNIQUEMultiple CT axial images of the chest were obtained with IV contrast. Coronal and sagittal images were reconstructed. 3D reconstructions using axial MIPS imaging was performed and reviewed. Dose reduction techniques included Automated Exposure Control (AEC) and adjustment of mA and kV.Stenoses are measured using NASCET criteria.FINDINGSPulmonary arteries are identified to subsegmental branches. There are no pulmonary emboli.Cardiomegaly is present.The pulmonary artery and aorta have a normal caliber. Atherosclerotic calcifications are present in the coronary arteries.Diffuse mediastinal and a few hilar lymph nodes are enlarged. Some of these are calcified.Patchy bilateral areas of ground-glass opacity are present compatible with bronchopneumonia. The findings are typical for COVID-19.No pleural effusion or pneumothorax.The thyroid has a normal size and configuration. No axillary mass or significant axillary lymphadenopathy is identified.Limited views of the upper abdomen show no significant abnormality. Degenerative changes are present in the spine.IMPRESSION1. No pulmonary emboli2. Bronchopneumonia typical for COVID-193. Mediastinal lymphadenopathy may be reactive or due to the patient's underlying sarcoidosis4. Cardiomegaly with CADElectronically signed by: Olvin Ignacio (Mar 03, 2020 13:06:03)
[2020-03-03] MEDS: SNACK - Diabetic Appropriate PO SCH (21:19)
[2020-03-03] MEDS: LIPITOR TAB 10 MG PO SCH (21:20)
[2020-03-04] MEDS: NEURONTIN CAP 300 MG PO SCH ×4 (05:32→21:30)
[2020-03-04] MEDS: SOLU-Medrol 40 MG VIAL IVP SCH ×3 (05:32→21:30)
[2020-03-04] MEDS: TRUSOPT PLUS (OPHTH) OP SCH ×3 (05:33→21:30)
[2020-03-04] MEDS: ZOSYN VIAL 3.375 GRAMS 3.375 G in NS 100 ML IV + SPIKE MINIBAG* 100 ML IV SCH ×3 (05:33→21:30)
[2020-03-04] MEDS: HumuLIN R SC PRN ×4 (05:42→21:30)
[2020-03-04] MEDS: NS 1000 ML 1,000 ML IV SCH (06:03)
[2020-03-04 06:13] LABS: ABG BASE EXCESS -0.2 mmol/L (-2.0-2.0)
--- NOTE | 2020-03-04 06:14 | RAD ---
HISTORYcovid pneumoniaSTUDYPortable AP [id number]/2021FINDINGSStable cardiac size and contour. No change in position of AICD. Persistent bilateral pulmonary infiltrates with slight interval improvement. No new areas of consolidation identified.IMPRESSIONPersistent bilateral pneumonia with suggestion of slight interval improvement in aeration of the lungs; no new abnormality demonstrated.Electronically signed by: RK HOUSTON (Mar 04, 2020 06:12:59)
[2020-03-04 06:15] LABS: ABG ALLEN TEST POSS
[2020-03-04 07:01] LABS: BASOPHILS % (AUTO) 0.1 % (0.2-1.0); HEMATOCRIT 42.5 % (42.0-54.0); HEMOGLOBIN 13.7 g/dL (13.5-18.0); LYMPHOCYTES # (AUTO) 0.4 X10^3/uL (1.3-2.9); LYMPHOCYTES % (AUTO) 1.8 % (21.0-51.0); MEAN CORPUSCULAR HEMOGLOBIN 29.8 pg (27.0-34.0); MEAN CORPUSCULAR HGB CONC 32.3 g/dL (33.0-35.0); MEAN CORPUSCULAR VOLUME 92.4 fL (80.0-100.0); MEAN PLATELET VOLUME 7.7 fL (7.4-11.0); MONOCYTES # (AUTO) 0.6 x10^3/uL (0.3-0.8); MONOCYTES % (AUTO) 2.7 % (0.0-13.0); NEUTROPHILS # (AUTO) 21.4 x10^3/uL (2.2-4.8); NEUTROPHILS % (AUTO) 95.4 % (42.0-75.0); PLATELET COUNT 241 X10^3/uL (150.0-450.0); RED BLOOD COUNT 4.59 X10^6/uL (4.7-6.0); RED CELL DISTRIBUTION WIDTH 13.5 % (11.6-16.5); WHITE BLOOD COUNT 22.4 X10^3/uL (3.6-10.0)
[2020-03-04 07:04] LABS: BLOOD UREA NITROGEN 24 mg/dL (7-18); CALCIUM 8.9 mg/dL (8.5-10.1); CARBON DIOXIDE 23.9 mmol/L (21-32); CHLORIDE 108 mmol/L (98-107); COR NA(FOR HYPERGLY) 145 mmol/L (136-145); CREATININE 1.25 mg/dL (0.70-1.30); SODIUM 142 mmol/L (136-145); eGFR NON BLACK RACES > 60 (>60)
[2020-03-04 07:38] LABS: BAND NEUTROPHILS % 5 % (0-10)
[2020-03-04 07:39] LABS: PLATELET MORPHOLOGY COMMENT NORMAL (NORMAL)
[2020-03-04] MEDS: ELIQUIS PO SCH ×2 (08:49→21:30)
[2020-03-04] MEDS: VITAMIN A PO SCH (08:50)
[2020-03-04] MEDS: LUMIGAN OPHTH EACHEYE SCH (08:50)
[2020-03-04] MEDS: BETAPACE AF PO SCH ×2 (08:50→21:30)
[2020-03-04] MEDS: VITAMIN D3 125 mcg (5,000 UNITS) PO SCH (08:51)
[2020-03-04] MEDS: ZINC SULFATE PO SCH ×2 (08:52→21:30)
[2020-03-04] MEDS: DUONEB 0.5 MG/3 MG (3 mL) NEB SCH ×4 (09:05→20:15)
[2020-03-04] MEDS: PULMICORT NEB TX 0.5 MG NEB SCH ×2 (09:05→20:15)
[2020-03-04] MEDS: VITAMIN C PO SCH (09:30)
[2020-03-04] MEDS: ZESTRIL TAB 10 MG PO SCH (09:30)
[2020-03-04] MEDS: REMDESIVIR 100 MG in NS 250 ML IV 250 ML IV SCH (09:30)
[2020-03-04] MEDS: AMARYL TAB 4 MG PO SCH (09:30)
[2020-03-04] MEDS: PriLOSEC PO SCH (09:30)
[2020-03-04] MEDS: SNACK - Diabetic Appropriate PO SCH (21:00)
[2020-03-04] MEDS: LIPITOR TAB 10 MG PO SCH (21:30)
[2020-03-05] MEDS: NEURONTIN CAP 300 MG PO SCH ×4 (05:00→21:25)
[2020-03-05] MEDS: TRUSOPT PLUS (OPHTH) OP SCH ×3 (05:00→21:15)
[2020-03-05] MEDS: SOLU-Medrol 40 MG VIAL IVP SCH ×3 (05:00→21:15)
[2020-03-05] MEDS: ZOSYN VIAL 3.375 GRAMS 3.375 G in NS 100 ML IV + SPIKE MINIBAG* 100 ML IV SCH ×3 (05:00→21:15)
[2020-03-05 06:10] LABS: BLOOD UREA NITROGEN 25 mg/dL (7-18); CALCIUM 8.6 mg/dL (8.5-10.1); CARBON DIOXIDE 24.1 mmol/L (21-32); CHLORIDE 107 mmol/L (98-107); COR NA(FOR HYPERGLY) 144 mmol/L (136-145); SODIUM 140 mmol/L (136-145); eGFR NON BLACK RACES > 60 (>60)
[2020-03-05 06:13] LABS: BASOPHILS % (AUTO) 0.1 % (0.2-1.0); EOSINOPHILS # (AUTO) 0.1 x10^3/uL (0.0-0.2); EOSINOPHILS % (AUTO) 0.3 % (0.9-2.9); HEMATOCRIT 38.2 % (42.0-54.0); HEMOGLOBIN 12.7 g/dL (13.5-18.0); LYMPHOCYTES # (AUTO) 0.3 X10^3/uL (1.3-2.9); LYMPHOCYTES % (AUTO) 1.6 % (21.0-51.0); MEAN CORPUSCULAR HEMOGLOBIN 30.3 pg (27.0-34.0); MEAN CORPUSCULAR HGB CONC 33.1 g/dL (33.0-35.0); MEAN CORPUSCULAR VOLUME 91.5 fL (80.0-100.0); MEAN PLATELET VOLUME 7.3 fL (7.4-11.0); MONOCYTES # (AUTO) 0.6 x10^3/uL (0.3-0.8); NEUTROPHILS # (AUTO) 19.5 x10^3/uL (2.2-4.8); PLATELET COUNT 218 X10^3/uL (150.0-450.0); RED BLOOD COUNT 4.18 X10^6/uL (4.7-6.0); RED CELL DISTRIBUTION WIDTH 13.6 % (11.6-16.5); WHITE BLOOD COUNT 20.5 X10^3/uL (3.6-10.0)
[2020-03-05] MEDS: HumuLIN R SC PRN ×4 (06:16→21:39)
[2020-03-05] MEDS: NS 1000 ML 1,000 ML IV SCH ×2 (06:18→17:33)
[2020-03-05 06:20] LABS: ABG BASE EXCESS 1.2 mmol/L (-2.0-2.0)
[2020-03-05 06:23] LABS: ABG ALLEN TEST POSS
[2020-03-05 06:47] LABS: BAND NEUTROPHILS % 2 % (0-10); PLATELET MORPHOLOGY COMMENT NORMAL (NORMAL)
--- NOTE | 2020-03-05 06:52 | RAD ---
HISTORY:PneumoniaStudy: Single view chestComparison:03/04/2020Findings:Stable cardiomegaly and AICD. There are persistent bilateral multifocal lung infiltrates without significant interval change. No pneumothorax identified. Soft tissues are intact.IMPRESSION:1. Stable chest.Electronically signed by: PAULETTE GUTIERRES (Mar 05, 2020 06:51:01)
[2020-03-05] MEDS: AMARYL TAB 4 MG PO SCH (08:51)
[2020-03-05] MEDS: BETAPACE AF PO SCH ×2 (08:53→21:15)
[2020-03-05] MEDS: ELIQUIS PO SCH ×2 (08:53→21:15)
[2020-03-05] MEDS: REMDESIVIR 100 MG in NS 250 ML IV 250 ML IV SCH (08:54)
[2020-03-05] MEDS: VITAMIN A PO SCH (08:54)
[2020-03-05] MEDS: PriLOSEC PO SCH (08:54)
[2020-03-05] MEDS: VITAMIN C PO SCH (08:55)
[2020-03-05] MEDS: ZESTRIL TAB 10 MG PO SCH (08:55)
[2020-03-05] MEDS: VITAMIN D3 125 mcg (5,000 UNITS) PO SCH (08:55)
[2020-03-05] MEDS: ZINC SULFATE PO SCH ×2 (08:55→21:15)
[2020-03-05] MEDS: DUONEB 0.5 MG/3 MG (3 mL) NEB SCH ×4 (10:00→20:50)
[2020-03-05] MEDS: PULMICORT NEB TX 0.5 MG NEB SCH ×2 (10:00→20:50)
[2020-03-05] MEDS ORDERED: LASIX IVP ONE (10:53)
[2020-03-05] MEDS ORDERED: MICRO K EXTEN CAP 10 MEQ PO SCH (11:00)
[2020-03-05] MEDS: LUMIGAN OPHTH EACHEYE SCH (12:12)
[2020-03-05 20:52] LABS: ABG ALLEN TEST POS; ABG BASE EXCESS 0.5 mmol/L (-2.0-2.0); ABG HCO3 24.6 mmol/L (22-26)
[2020-03-05] MEDS: LIPITOR TAB 10 MG PO SCH (21:15)
[2020-03-05] MEDS: SNACK - Diabetic Appropriate PO SCH (21:27)
[2020-03-06 04:26] LABS: ABG ALLEN TEST POS; ABG BASE EXCESS 3.3 mmol/L (-2.0-2.0); ABG HCO3 27.8 mmol/L (22-26)
[2020-03-06] MEDS: SOLU-Medrol 40 MG VIAL IVP SCH (06:16)
[2020-03-06] MEDS: NEURONTIN CAP 300 MG PO SCH ×3 (06:16→21:18)
[2020-03-06] MEDS: NS 1000 ML 1,000 ML IV SCH (06:17)
[2020-03-06] MEDS: ZOSYN VIAL 3.375 GRAMS 3.375 G in NS 100 ML IV + SPIKE MINIBAG* 100 ML IV SCH ×3 (06:17→21:18)
[2020-03-06] MEDS: TRUSOPT PLUS (OPHTH) OP SCH ×3 (06:17→21:18)
[2020-03-06 06:22] LABS: BASOPHILS % (AUTO) 0 % (0.2-1.0); HEMATOCRIT 38.8 % (42.0-54.0); HEMOGLOBIN 12.9 g/dL (13.5-18.0); LYMPHOCYTES # (AUTO) 0.3 X10^3/uL (1.3-2.9); LYMPHOCYTES % (AUTO) 1.4 % (21.0-51.0); MEAN CORPUSCULAR HEMOGLOBIN 30.4 pg (27.0-34.0); MEAN CORPUSCULAR HGB CONC 33.3 g/dL (33.0-35.0); MEAN CORPUSCULAR VOLUME 91.5 fL (80.0-100.0); MEAN PLATELET VOLUME 7.7 fL (7.4-11.0); MONOCYTES # (AUTO) 0.6 x10^3/uL (0.3-0.8); MONOCYTES % (AUTO) 2.9 % (0.0-13.0); NEUTROPHILS % (AUTO) 95.7 % (42.0-75.0); PLATELET COUNT 220 X10^3/uL (150.0-450.0); RED BLOOD COUNT 4.25 X10^6/uL (4.7-6.0); RED CELL DISTRIBUTION WIDTH 13.6 % (11.6-16.5); WHITE BLOOD COUNT 19.8 X10^3/uL (3.6-10.0)
[2020-03-06 06:27] LABS: BLOOD UREA NITROGEN 27 mg/dL (7-18); CALCIUM 8.8 mg/dL (8.5-10.1); CARBON DIOXIDE 27.5 mmol/L (21-32); CHLORIDE 107 mmol/L (98-107); COR NA(FOR HYPERGLY) 148 mmol/L (136-145); CREATININE 1.28 mg/dL (0.70-1.30); SODIUM 143 mmol/L (136-145); eGFR NON BLACK RACES 59 (>60)
[2020-03-06] MEDS: HumuLIN R SC PRN ×4 (06:38→22:06)
--- NOTE | 2020-03-06 07:43 | RAD ---
HISTORYINFILTRATESSTUDYCHEST, 1 [id number]/17/2021FINDINGSPatchy bilateral bronchopneumonia unchanged from yesterday.No pleural effusion or pneumothorax.The heart size is magnified. Vascular calcifications are present compatible with atherosclerosis.Bones are unremarkable.Left subclavian ICD is present with leads in expected location. EKG leads are noted.IMPRESSION1. Unchanged bronchopneumoniaElectronically signed by: Olvin Ignacio (Mar 06, 2020 07:41:52)
[2020-03-06 07:54] LABS: BAND NEUTROPHILS % 1 % (0-10)
[2020-03-06 07:55] LABS: PLATELET MORPHOLOGY COMMENT NORMAL (NORMAL)
[2020-03-06] MEDS ORDERED: IVERMECTIN PO NR ×2 (08:27→11:00)
[2020-03-06] MEDS: DUONEB 0.5 MG/3 MG (3 mL) NEB SCH ×4 (09:30→21:35)
[2020-03-06] MEDS: PULMICORT NEB TX 0.5 MG NEB SCH ×2 (09:30→21:35)
[2020-03-06] MEDS: BETAPACE AF PO SCH ×2 (10:39→21:17)
[2020-03-06] MEDS: VITAMIN D3 125 mcg (5,000 UNITS) PO SCH (10:39)
[2020-03-06] MEDS: VITAMIN A PO SCH (10:40)
[2020-03-06] MEDS: ZINC SULFATE PO SCH ×2 (10:40→21:17)
[2020-03-06] MEDS: ZESTRIL TAB 10 MG PO SCH (10:41)
[2020-03-06] MEDS: ELIQUIS PO SCH ×2 (10:42→21:17)
[2020-03-06] MEDS: PriLOSEC PO SCH (10:43)
[2020-03-06] MEDS: SOLU-Medrol 125 MG VIAL IVP SCH ×2 (10:44→21:17)
[2020-03-06] MEDS: LUMIGAN OPHTH EACHEYE SCH (10:47)
[2020-03-06] MEDS: VITAMIN C PO SCH (10:48)
[2020-03-06] MEDS: AMARYL TAB 4 MG PO SCH (11:45)
[2020-03-06] MEDS: LR 1000 ML IV 1,000 ML IV SCH ×2 (12:42→21:18)
[2020-03-06] MEDS: LIPITOR TAB 10 MG PO SCH (21:17)
[2020-03-06] MEDS: SNACK - Diabetic Appropriate PO SCH (21:17)
[2020-03-07] MEDS: ZOSYN VIAL 3.375 GRAMS 3.375 G in NS 100 ML IV + SPIKE MINIBAG* 100 ML IV SCH ×3 (05:48→21:00)
[2020-03-07] MEDS: TRUSOPT PLUS (OPHTH) OP SCH ×3 (05:48→21:00)
[2020-03-07] MEDS: NEURONTIN CAP 300 MG PO SCH ×3 (05:48→21:00)
[2020-03-07] MEDS: HumuLIN R SC PRN ×4 (05:50→20:00)
[2020-03-07 06:33] LABS: ALANINE AMINOTRANSFERASE 112 Units/L (12-78); ALBUMIN 2.2 g/dL (3.4-5.0); ALKALINE PHOSPHATASE 101 Units/L (46-116); ASPARTATE AMINO TRANSFERASE 23 Units/L (15-37); BLOOD UREA NITROGEN 27 mg/dL (7-18); CALCIUM 8.5 mg/dL (8.5-10.1); CARBON DIOXIDE 24.6 mmol/L (21-32); CHLORIDE 106 mmol/L (98-107); COR CA(FOR HYPOALB) 9.9 mg/dL (8.5-10.1); COR NA(FOR HYPERGLY) 145 mmol/L (136-145); CREATININE 1.25 mg/dL (0.70-1.30); SODIUM 139 mmol/L (136-145); TOTAL PROTEIN 6.1 g/dL (6.4-8.2); eGFR NON BLACK RACES > 60 (>60)
[2020-03-07 06:42] LABS: BASOPHILS % (AUTO) 0 % (0.2-1.0); HEMATOCRIT 38.9 % (42.0-54.0); HEMOGLOBIN 12.9 g/dL (13.5-18.0); LYMPHOCYTES # (AUTO) 0.2 X10^3/uL (1.3-2.9); LYMPHOCYTES % (AUTO) 1.2 % (21.0-51.0); MEAN CORPUSCULAR HEMOGLOBIN 30.6 pg (27.0-34.0); MEAN CORPUSCULAR HGB CONC 33.1 g/dL (33.0-35.0); MEAN CORPUSCULAR VOLUME 92.3 fL (80.0-100.0); MEAN PLATELET VOLUME 7.8 fL (7.4-11.0); MONOCYTES # (AUTO) 0.5 x10^3/uL (0.3-0.8); MONOCYTES % (AUTO) 2.3 % (0.0-13.0); NEUTROPHILS # (AUTO) 19.3 x10^3/uL (2.2-4.8); NEUTROPHILS % (AUTO) 96.5 % (42.0-75.0); PLATELET COUNT 199 X10^3/uL (150.0-450.0); RED BLOOD COUNT 4.21 X10^6/uL (4.7-6.0); RED CELL DISTRIBUTION WIDTH 13.7 % (11.6-16.5)
[2020-03-07 07:17] LABS: PLATELET MORPHOLOGY COMMENT NORMAL (NORMAL)
[2020-03-07] MEDS: DUONEB 0.5 MG/3 MG (3 mL) NEB SCH ×4 (08:30→21:43)
[2020-03-07] MEDS: PULMICORT NEB TX 0.5 MG NEB SCH ×2 (08:30→21:43)
[2020-03-07] MEDS: VITAMIN D3 125 mcg (5,000 UNITS) PO SCH (09:00)
[2020-03-07] MEDS: ZINC SULFATE PO SCH ×2 (09:01→20:24)
[2020-03-07] MEDS: SOLU-Medrol 125 MG VIAL IVP SCH ×2 (09:01→20:24)
[2020-03-07] MEDS: BETAPACE AF PO SCH ×2 (09:01→20:23)
[2020-03-07] MEDS: PriLOSEC PO SCH (09:02)
[2020-03-07] MEDS: ZESTRIL TAB 10 MG PO SCH (09:02)
[2020-03-07] MEDS: LUMIGAN OPHTH EACHEYE SCH (09:03)
[2020-03-07] MEDS: ELIQUIS PO SCH ×2 (09:04→20:23)
[2020-03-07] MEDS: VITAMIN C PO SCH (09:04)
[2020-03-07] MEDS: VITAMIN A PO SCH (09:06)
[2020-03-07] MEDS: AMARYL TAB 4 MG PO SCH (09:09)
[2020-03-07] MEDS: LR 1000 ML IV 1,000 ML IV SCH (13:14)
[2020-03-07] MEDS: SNACK - Diabetic Appropriate PO SCH (20:00)
[2020-03-07] MEDS: LIPITOR TAB 10 MG PO SCH (20:26)
[2020-03-08 04:31] LABS: ABG BASE EXCESS 3.9 mmol/L (-2.0-2.0); ABG HCO3 28.5 mmol/L (22-26)
[2020-03-08 04:32] LABS: ABG ALLEN TEST POSS
[2020-03-08] MEDS: NEURONTIN CAP 300 MG PO SCH ×3 (05:44→21:42)
[2020-03-08] MEDS: TRUSOPT PLUS (OPHTH) OP SCH ×3 (05:45→21:43)
[2020-03-08] MEDS: ZOSYN VIAL 3.375 GRAMS 3.375 G in NS 100 ML IV + SPIKE MINIBAG* 100 ML IV SCH ×3 (05:45→21:43)
[2020-03-08] MEDS: LR 1000 ML IV 1,000 ML IV SCH ×3 (05:46→12:04)
[2020-03-08] MEDS: HumuLIN R SC PRN ×4 (05:46→21:44)
[2020-03-08 06:14] LABS: BASOPHILS % (AUTO) 0.1 % (0.2-1.0); HEMATOCRIT 38.8 % (42.0-54.0); HEMOGLOBIN 12.7 g/dL (13.5-18.0); LYMPHOCYTES # (AUTO) 0.2 X10^3/uL (1.3-2.9); MEAN CORPUSCULAR HEMOGLOBIN 30.3 pg (27.0-34.0); MEAN CORPUSCULAR HGB CONC 32.9 g/dL (33.0-35.0); MEAN CORPUSCULAR VOLUME 92.2 fL (80.0-100.0); MEAN PLATELET VOLUME 7.8 fL (7.4-11.0); MONOCYTES # (AUTO) 0.5 x10^3/uL (0.3-0.8); MONOCYTES % (AUTO) 2.7 % (0.0-13.0); NEUTROPHILS # (AUTO) 16.5 x10^3/uL (2.2-4.8); NEUTROPHILS % (AUTO) 96.2 % (42.0-75.0); PLATELET COUNT 169 X10^3/uL (150.0-450.0); RED CELL DISTRIBUTION WIDTH 13.6 % (11.6-16.5); WHITE BLOOD COUNT 17.2 X10^3/uL (3.6-10.0)
[2020-03-08 06:39] LABS: ALANINE AMINOTRANSFERASE 89 Units/L (12-78); ALBUMIN 2.2 g/dL (3.4-5.0); ALKALINE PHOSPHATASE 91 Units/L (46-116); ASPARTATE AMINO TRANSFERASE 18 Units/L (15-37); BLOOD UREA NITROGEN 27 mg/dL (7-18); CALCIUM 8.4 mg/dL (8.5-10.1); CARBON DIOXIDE 26.4 mmol/L (21-32); CHLORIDE 106 mmol/L (98-107); COR CA(FOR HYPOALB) 9.8 mg/dL (8.5-10.1); COR NA(FOR HYPERGLY) 147 mmol/L (136-145); SODIUM 141 mmol/L (136-145); TOTAL PROTEIN 6.1 g/dL (6.4-8.2); eGFR NON BLACK RACES > 60 (>60)
--- NOTE | 2020-03-08 06:44 | RAD ---
Chest AP portableIndication: COVID-19 follow-upCOMPARISONJanuary 2000FINDINGSThere is no pneumothorax. AICD lead projects as expected with pacemaker lead. Monitor leads obscure minimal detail. Cervical spine hardware noted. Patchy bilateral pulmonary opacities, worse in the right lower lung again noted, perhaps slightly worse. Heart size is prominent.IMPRESSIONPatchy bilateral pulmonary opacities have slightly worsened, compatible with COVID-19 viral pneumonitis. Follow-up to resolution.Electronically signed by: ANDRESSA RUSS (Mar 08, 2020 06:42:14)
[2020-03-08 07:18] LABS: BAND NEUTROPHILS % 2 % (0-10); PLATELET MORPHOLOGY COMMENT NORMAL (NORMAL)
[2020-03-08] MEDS: VITAMIN D3 125 mcg (5,000 UNITS) PO SCH (08:06)
[2020-03-08] MEDS: ELIQUIS PO SCH ×2 (08:06→20:42)
[2020-03-08] MEDS: VITAMIN C PO SCH (08:07)
[2020-03-08] MEDS: PriLOSEC PO SCH (08:07)
[2020-03-08] MEDS: ZINC SULFATE PO SCH ×2 (08:08→20:38)
[2020-03-08] MEDS: VITAMIN A PO SCH (08:08)
[2020-03-08] MEDS: ZESTRIL TAB 10 MG PO SCH (08:09)
[2020-03-08] MEDS: LUMIGAN OPHTH EACHEYE SCH (08:10)
[2020-03-08] MEDS: BETAPACE AF PO SCH ×2 (08:10→20:38)
[2020-03-08] MEDS ORDERED: SOLU-Medrol 40 MG VIAL ONE (08:22)
[2020-03-08] MEDS: IVERMECTIN PO SCH (08:24)
[2020-03-08] MEDS: AMARYL TAB 4 MG PO SCH (08:24)
[2020-03-08] MEDS: SOLU-Medrol 125 MG VIAL IVP SCH ×2 (08:24→20:39)
[2020-03-08] MEDS: PULMICORT NEB TX 0.5 MG NEB SCH ×2 (09:30→22:30)
[2020-03-08] MEDS: DUONEB 0.5 MG/3 MG (3 mL) NEB SCH ×4 (09:30→22:30)
[2020-03-08] MEDS: LIPITOR TAB 10 MG PO SCH (20:42)
[2020-03-08] MEDS: SNACK - Diabetic Appropriate PO SCH (20:43)
[2020-03-09] MEDS: LR 1000 ML IV 1,000 ML IV SCH ×2 (02:15→17:28)
[2020-03-09] MEDS: NEURONTIN CAP 300 MG PO SCH ×3 (05:56→21:23)
[2020-03-09] MEDS: ZOSYN VIAL 3.375 GRAMS 3.375 G in NS 100 ML IV + SPIKE MINIBAG* 100 ML IV SCH ×3 (05:56→21:23)
[2020-03-09] MEDS: TRUSOPT PLUS (OPHTH) OP SCH ×3 (05:56→21:23)
[2020-03-09] MEDS: HumuLIN R SC PRN ×4 (06:14→21:15)
[2020-03-09 06:32] LABS: BASOPHILS % (AUTO) 0.1 % (0.2-1.0); HEMATOCRIT 37.6 % (42.0-54.0); HEMOGLOBIN 12.5 g/dL (13.5-18.0); LYMPHOCYTES # (AUTO) 0.2 X10^3/uL (1.3-2.9); LYMPHOCYTES % (AUTO) 1.4 % (21.0-51.0); MEAN CORPUSCULAR HEMOGLOBIN 30.5 pg (27.0-34.0); MEAN CORPUSCULAR HGB CONC 33.2 g/dL (33.0-35.0); MEAN PLATELET VOLUME 7.8 fL (7.4-11.0); MONOCYTES # (AUTO) 0.4 x10^3/uL (0.3-0.8); NEUTROPHILS % (AUTO) 95.5 % (42.0-75.0); PLATELET COUNT 156 X10^3/uL (150.0-450.0); RED BLOOD COUNT 4.09 X10^6/uL (4.7-6.0); RED CELL DISTRIBUTION WIDTH 13.4 % (11.6-16.5); WHITE BLOOD COUNT 14.7 X10^3/uL (3.6-10.0)
[2020-03-09 06:36] LABS: ALANINE AMINOTRANSFERASE 66 Units/L (12-78); ALBUMIN 2.2 g/dL (3.4-5.0); ALKALINE PHOSPHATASE 102 Units/L (46-116); ASPARTATE AMINO TRANSFERASE 15 Units/L (15-37); BLOOD UREA NITROGEN 28 mg/dL (7-18); CALCIUM 8.4 mg/dL (8.5-10.1); CARBON DIOXIDE 25.4 mmol/L (21-32); CHLORIDE 107 mmol/L (98-107); COR CA(FOR HYPOALB) 9.8 mg/dL (8.5-10.1); COR NA(FOR HYPERGLY) 147 mmol/L (136-145); CREATININE 1.15 mg/dL (0.70-1.30); MAGNESIUM 2.2 mg/dL (1.7-2.9); SODIUM 141 mmol/L (136-145); TOTAL PROTEIN 5.9 g/dL (6.4-8.2); eGFR NON BLACK RACES > 60 (>60)
[2020-03-09 07:15] LABS: PLATELET MORPHOLOGY COMMENT NORMAL (NORMAL)
--- NOTE | 2020-03-09 08:42 | RAD ---
HISTORYCOVID PNEUMONIA, WORSENING PNEUMONIASTUDYCHEST, 1 [id number]/20/2021FINDINGSThe trachea is midline. There is mild cardiomegaly. There is a left-sided pacemaker with 2 leads. There is no significant interval change of patchy alveolar and ground-glass radiopacities in the right lower lobe as well as in the right upper lobe and patchy in the left lower lobe. There is no evidence of effusions or pneumothorax.IMPRESSIONoverall no interval change. Persistent alveolar and patchy ground-glass radiopacities in the upper lobes and lower lobes.Electronically signed by: Marcela Vargas (Mar 09, 2020 08:41:18)
[2020-03-09] MEDS: PULMICORT NEB TX 0.5 MG NEB SCH ×2 (09:42→20:25)
[2020-03-09] MEDS: DUONEB 0.5 MG/3 MG (3 mL) NEB SCH ×4 (09:42→20:25)
[2020-03-09] MEDS: AMARYL TAB 4 MG PO SCH (09:58)
[2020-03-09] MEDS: IVERMECTIN PO SCH (09:58)
[2020-03-09] MEDS: BETAPACE AF PO SCH ×2 (09:59→20:06)
[2020-03-09] MEDS: LUMIGAN OPHTH EACHEYE SCH (10:00)
[2020-03-09] MEDS: DECADRON INJ IVP SCH (10:00)
[2020-03-09] MEDS: ELIQUIS PO SCH ×2 (10:00→20:08)
[2020-03-09] MEDS: PriLOSEC PO SCH (10:01)
[2020-03-09] MEDS: ZESTRIL TAB 10 MG PO SCH (10:02)
[2020-03-09] MEDS: ZINC SULFATE PO SCH ×2 (10:02→20:09)
[2020-03-09] MEDS: VITAMIN A PO SCH (10:02)
[2020-03-09] MEDS: VITAMIN C PO SCH (10:03)
[2020-03-09] MEDS: VITAMIN D3 125 mcg (5,000 UNITS) PO SCH (10:03)
[2020-03-09] MEDS: LIPITOR TAB 10 MG PO SCH (20:09)
[2020-03-09] MEDS: SNACK - Diabetic Appropriate PO SCH (21:23)
[2020-03-10 05:14] LABS: ABG BASE EXCESS 3.2 mmol/L (-2.0-2.0); ABG HCO3 27.9 mmol/L (22-26)
[2020-03-10 05:15] LABS: ABG ALLEN TEST POS
[2020-03-10] MEDS: NEURONTIN CAP 300 MG PO SCH ×2 (06:06→15:17)
[2020-03-10] MEDS: TRUSOPT PLUS (OPHTH) OP SCH ×2 (06:06→15:17)
[2020-03-10] MEDS: ZOSYN VIAL 3.375 GRAMS 3.375 G in NS 100 ML IV + SPIKE MINIBAG* 100 ML IV SCH ×2 (06:07→15:17)
--- NOTE | 2020-03-10 06:12 | RAD ---
HISTORYCOVIDSTUDYCHEST, 1 [id number]/21/2021FINDINGSThe trachea is midline. Permanent pacing device. The cardiac silhouette is mildly enlarged.. Patchy alveolar and ground-glass opacities in the upper and lower lung .. No pneumothorax.. The bony thorax is unremarkable.IMPRESSIONStable portable chestElectronically signed by: Gabriel Young (Mar 10, 2020 06:11:19)
[2020-03-10] MEDS: HumuLIN R SC PRN ×3 (06:22→17:35)
[2020-03-10 06:44] LABS: BASOPHILS % (AUTO) 0.2 % (0.2-1.0); EOSINOPHILS # (AUTO) 0.1 x10^3/uL (0.0-0.2); EOSINOPHILS % (AUTO) 0.4 % (0.9-2.9); HEMATOCRIT 38.6 % (42.0-54.0); HEMOGLOBIN 12.5 g/dL (13.5-18.0); LYMPHOCYTES # (AUTO) 0.2 X10^3/uL (1.3-2.9); LYMPHOCYTES % (AUTO) 1.9 % (21.0-51.0); MEAN CORPUSCULAR HEMOGLOBIN 29.9 pg (27.0-34.0); MEAN CORPUSCULAR HGB CONC 32.3 g/dL (33.0-35.0); MEAN CORPUSCULAR VOLUME 92.6 fL (80.0-100.0); MEAN PLATELET VOLUME 8.2 fL (7.4-11.0); MONOCYTES # (AUTO) 0.8 x10^3/uL (0.3-0.8); MONOCYTES % (AUTO) 5.7 % (0.0-13.0); NEUTROPHILS % (AUTO) 91.8 % (42.0-75.0); PLATELET COUNT 129 X10^3/uL (150.0-450.0); RED BLOOD COUNT 4.17 X10^6/uL (4.7-6.0); RED CELL DISTRIBUTION WIDTH 13.6 % (11.6-16.5); WHITE BLOOD COUNT 13.1 X10^3/uL (3.6-10.0)
[2020-03-10 06:52] LABS: ALANINE AMINOTRANSFERASE 57 Units/L (12-78); ALBUMIN 2.2 g/dL (3.4-5.0); ALKALINE PHOSPHATASE 104 Units/L (46-116); ASPARTATE AMINO TRANSFERASE 14 Units/L (15-37); BLOOD UREA NITROGEN 30 mg/dL (7-18); CALCIUM 8.2 mg/dL (8.5-10.1); CARBON DIOXIDE 26.1 mmol/L (21-32); CHLORIDE 109 mmol/L (98-107); COR CA(FOR HYPOALB) 9.6 mg/dL (8.5-10.1); COR NA(FOR HYPERGLY) 148 mmol/L (136-145); CREATININE 1.17 mg/dL (0.70-1.30); SODIUM 143 mmol/L (136-145); TOTAL PROTEIN 5.5 g/dL (6.4-8.2); eGFR NON BLACK RACES > 60 (>60)
[2020-03-10 07:57] LABS: PLATELET MORPHOLOGY COMMENT NORMAL (NORMAL)
[2020-03-10] MEDS: PULMICORT NEB TX 0.5 MG NEB SCH (09:22)
[2020-03-10] MEDS: DUONEB 0.5 MG/3 MG (3 mL) NEB SCH ×2 (09:22→13:44)
[2020-03-10] MEDS: BETAPACE AF PO SCH (09:27)
[2020-03-10] MEDS: AMARYL TAB 4 MG PO SCH (09:27)
[2020-03-10] MEDS: ELIQUIS PO SCH (09:28)
[2020-03-10] MEDS: ZESTRIL TAB 10 MG PO SCH (09:28)
[2020-03-10] MEDS: VITAMIN D3 125 mcg (5,000 UNITS) PO SCH (09:29)
[2020-03-10] MEDS: ZINC SULFATE PO SCH (09:29)
[2020-03-10] MEDS: VITAMIN C PO SCH (09:30)
[2020-03-10] MEDS: VITAMIN A PO SCH (09:30)
[2020-03-10] MEDS: PriLOSEC PO SCH (09:31)
[2020-03-10] MEDS: IVERMECTIN PO SCH (09:31)
[2020-03-10] MEDS: LUMIGAN OPHTH EACHEYE SCH (09:31)
[2020-03-10] MEDS: DECADRON INJ IVP SCH (09:32)
[2020-03-10 15:51] VITALS: BP 106/62
== END 2020-03-10 17:40 | disposition home or self-care (01) | DRG 177 ==
LOC: OBS 04:41 → ER 04:41 → OBSVTOIN 06:40 → OBS 09:01 → MED/SURG 17:23
PROVIDERS: ADMIT Internal Medicine; ATTEND Internal Medicine
DX: D86.9 Sarcoidosis, unspecified; R79.82 Elevated C-reactive protein (CRP); Z95.810 Presence of automatic (implantable) cardiac defibrillator; J96.01 Acute respiratory failure with hypoxia; R26.89 Other abnormalities of gait and mobility; I10 Essential (primary) hypertension; J12.82 Pneumonia due to coronavirus disease 2019; E11.65 Type 2 diabetes mellitus with hyperglycemia; I25.10 Atherosclerotic heart disease of native coronary artery without angina pectoris; Z79.01 Long term (current) use of anticoagulants; U07.1 COVID-19; R94.4 Abnormal results of kidney function studies; N28.9 Disorder of kidney and ureter, unspecified